=== PATIENT | male | born 1935 | race African-American/Black ===

== ENCOUNTER 2018-08-29 09:22 | Day surgery (SDC) | payer OTHER ==
[2018-08-28 14:17] VITALS: BMI 25.6
[2018-08-29] MEDS ORDERED: ONDANSETRON 4 MG/2 ML VIAL IVPUSH PRN (10:18)
[2018-08-29] MEDS ORDERED: LACTATED RINGERS SOLUTION 1,000 ML IV SCH (10:30)
[2018-08-29] MEDS ORDERED: LIDOCAINE HCL 1%, 10 MG/ML (20ML VIAL) ONE (13:04)
[2018-08-29] MEDS ORDERED: SUCCINYLCHOLINE CHLORIDE 200 MG/10 ML VIAL ONE (13:27)
[2018-08-29] MEDS ORDERED: PROPOFOL 20 ML ONE (13:27)
[2018-08-29] MEDS ORDERED: MIDAZOLAM HCL 2 MG/2 ML SINGLE DOSE VIAL ONE (13:27)
[2018-08-29] MEDS ORDERED: SODIUM CHLORIDE 0.9% P/F 10 ML VIAL IJ ONE (13:40)
[2018-08-29] MEDS ORDERED: ceFAZolin SODIUM 1 GM VIAL ONE (13:40)
[2018-08-29] MEDS ORDERED: ceFAZolin SODIUM 1 GM VIAL IVPB ONE ×2 (13:42)
[2018-08-29] MEDS ORDERED: LIDOCAINE HCL 1%, 10 MG/ML (50 mL VIAL) IJ ONE ×2 (13:47)
--- NOTE | 2018-08-29 14:30 | OP ---
Operative Note - Note: Operative Date: 08/29/18 Pre-Operative Diagnosis: urge incontinence Operation: Replacement of interstim battery Implants: Interstim battery Surgeon: Jose Juan Wharton MD. Anesthesia: MAC Estimated Blood Loss (mls): 5
--- NOTE | 2018-08-29 16:16 | OP ---
DATE OF OPERATION: 08/29/2018 PREOPERATIVE DIAGNOSIS: Urge incontinence. POSTOPERATIVE DIAGNOSIS: Urge incontinence. PROCEDURE: Replacement of Interstim battery. HISTORY: This is an 83-year-old gentleman with history of prostate cancer status post brachytherapy. Patient failed local therapy and with successive PSA rising several years ago. Patient was offered an LHRH agonists, which he is undergoing on a monthly basis at this time. Patient had a previous Interstim placed approximately 5 years ago. He had been doing quite well with control of his urge incontinence and urgency up until approximately 3 months ago. Patient noticed a sharp increase in his symptoms at that time. The battery was then tested and found to be nonfunctioning at that time. Patient was offered above-stated procedure. Risks and benefits of treatment and alternatives were discussed in detail, and all questions were answered. BRIEF OPERATIVE NOTE: Patient brought to the operating room placed in supine position. MAC anesthesia was administered. Approximately 10 mL of lidocaine was administered locally. Patient was prepped and draped in standard sterile fashion. At this time, using sharp dissection, the previous scar was excised. The pocket was opened using cautery and blunt dissection. The battery was delivered into the field and disconnected from the wire. It was then tested and failed to be working at all 4 points. Using fluoroscopy, the position was also checked and was found to be in excellent position. At this time a new battery was then connected. It was programmed and was 100% working at normal capacity. The wound was then irrigated and then closed in 2 layers using initially 3-0 interrupted and then a 4-0 running subcuticular stitch. Dry sterile occlusive dressing was applied. The patient was brought to the recovery room in stable and satisfactory condition. SCOUT AMOS M.D. [id number]
[2018-08-29 16:17] VITALS: BP 131/66; PULSE 65; TEMP 97.8
--- NOTE | 2018-09-04 13:52 | PATH ---
Surgical Pathology Report Patient Name: DEYSI STEWART Med. Rec. #: [id number] /Age/Gender: 1935 (Age: 83) / M Account: [id number] Location: [facility] Taken: 08/29/2018 Received: 08/30/2018 Reported: 09/04/2018 Physicians: Jose Juan Wharton M.D. Specimen(s) Received REMOVED BATTERY Clinical History Urinary incontinence Final Diagnosis BATTERY, REMOVAL: ASSIST[employer] BUSINESS (BATTERY). MACROSCOPIC DIAGNOSIS. Electronically Signed Heike Garza M.D. Gross Description Received fresh labeled "removed battery," is a 4.8 x 4.2 x 0.7 cm henson metallic device, consistent with a battery. The battery has the following inscription: "[employer] InterStim II SN: [id number]." No soft tissue is present. No sections are submitted, gross only. /08/30/2018 saudi08/30/2018
== END 2018-08-29 16:23 | disposition home or self-care (01) ==
LOC: JASU-SURG 09:22
PROVIDERS: ATTEND Urology
PROC: 0JH70BZ Insertion of Single Array Stimulator Generator into Back Subcutaneous Tissue and Fascia, Open Approach (ICD-10-PCS; 2018-08-29)
PROC: 0JPT0MZ Removal of Stimulator Generator from Trunk Subcutaneous Tissue and Fascia, Open Approach (ICD-10-PCS; principal; 2018-08-29 11:00)
DX: T85.118A Breakdown (mechanical) of other implanted electronic stimulator of nervous system, initial encounter (principal); N39.41 Urge incontinence; C61 Malignant neoplasm of prostate
CPT/HCPCS: 64590; C1767; 76000-TC-FY; 88300-TC; 94760